=== PATIENT | male | born 1995 | race African-American/Black ===

== ENCOUNTER 2019-10-14 04:11 | Emergency (ER) | payer SELFPAY ==
[~2019-10-14] VITALS: Ht 182.9 cm; Wt 81.6 kg
[2019-10-14 04:30] VITALS: BP 134/75
--- NOTE | 2019-10-14 04:30 | NUR ---
ED Nurse Note: Patient walked in to ER from home d/t dry cough, bilateral ear ache and chest pain 06/15. Patient stated symptoms started two weeks ago but chest pain only today. Patient aao x 4 and ambulatory. Patient changed into gown and placed on color television console monitor. No acute distress noted upon assessment.
--- NOTE | 2019-10-14 04:31 | NUR ---
ED Nurse Note: ERMD at bedside.
[2019-10-14] MEDS ORDERED: ZYRTEC10 MG ORAL (04:35)
--- NOTE | 2019-10-14 04:36 | Emergency Room Report ---
History of Present Illness General Chief Complaint: Flu Like Symptoms Source: Patient Present Illness HPI Patient presents with complaints of cough and congestion ongoing for the past 2 weeks reports that now more recently is having increased pressure behind both ears Denies any chest pain denies any neck pain or photophobia denies any vomiting or diarrhea Patient reports that he was seen at another facility his x-ray was normal However continues with the nasal congestion Allergies: Coded Allergies: GUAIFENESIN (Verified Allergy, Unknown, 10/14/19) IBUPROFEN (Verified Allergy, Unknown, 10/14/19) Patient History Past Medical History: see triage record Reviewed Nursing Documentation: PMH: Agreed; PSxH: Agreed Nursing Documentation-PMH Past Medical History: No Stated History Review of Systems All Other Systems: negative except mentioned in HPI Physical Exam Vital Signs Date Time Temp Pulse Resp B/P (MAP) Pulse Ox O2 Delivery O2 Flow Rate FiO2 10/14/19 04:15 97.9 67 20 140/95 (110) 98 Room Air Sp02 EP Interpretation: reviewed, normal General Appearance: no apparent distress Head: normocephalic, atraumatic Eyes: bilateral eye PERRL, bilateral eye EOMI ENT: other - Clear rhinorrhea Neck: supple, no meningismus Respiratory: lungs clear, no respiratory distress, no retraction Cardiovascular #1: regular rate, rhythm Gastrointestinal: non tender Musculoskeletal: normal inspection Neurologic: alert, oriented x3 Psychiatric: normal inspection Skin: no rash Lymphatic: no adenopathy Medical Decision Making Diagnostic Impression: Primary Impression: Influenza-like symptoms Additional Impression: URI ER Course Patient's exam and symptoms are consistent with what appears to be likely viral URI Other differential such as flu as well considered Meningitis and pneumonia also entertained patient otherwise appears hemodynamically stable and clinically well and is stable for close outpatient follow-up Last Vital Signs Date Time Temp Pulse Resp B/P (MAP) Pulse Ox O2 Delivery O2 Flow Rate FiO2 10/14/19 04:15 97.9 67 20 140/95 (110) 98 Room Air Status: improved Disposition: HOME, SELF-CARE Condition: Improved Scripts Cetirizine Hcl* (ZYRTEC*) 10 Mg Tablet 10 MG ORAL DAILY, #20 TAB 0 Refills Prov: Claude Wang DO 10/14/19 Referrals: [facility] Patient Instructions: Upper Respiratory Infection, Adult Additional Instructions: Patient is provided with the discharge instructions notified to follow up with primary doctor in the next 2-3 days otherwise return to the er with any worsening symptoms. Please note that this report is being documented using ulike technology. This can lead to erroneous entry secondary to incorrect interpretation by the dictating instrument. Claude Wang DO Oct 14, 2019 04:36
[2019-10-14 04:42] VITALS: BP 125/80
--- NOTE | 2019-10-14 04:42 | NUR ---
ED Nurse Note: Patient cleared for discharge per ERMD. Patient given discharge instructions and prescriptions, verbalized understanding. Medical devices and ID band removed. Patient aao x 4 and ambulating. Patient stable upon discharge.
[2019-10-14] MEDS ORDERED: Promethazine Plain 6.25mg/5ml ORAL ONE (04:45)
== END 2019-10-14 04:42 | disposition home or self-care (01) ==
LOC: EMR 04:39
DX: J11.1 Influenza due to unidentified influenza virus with other respiratory manifestations (principal); J06.9 Acute upper respiratory infection, unspecified; Z88.6 Allergy status to analgesic agent
CPT/HCPCS: 99282